=== PATIENT | male | born 1950 | race Caucasian/White ===

== ENCOUNTER 2022-12-26 05:46 | Inpatient (IN) | payer OTHER ==
[2022-12-26] VITALS (16 sets, daily range): BP systolic 110–172; BP diastolic 53–110
[~2022-12-26] VITALS: Ht 180.3 cm; Wt 106.6 kg
[~2022-12-26 05:46] MED LIST: Crestor20 MG PO; IBUP200 PO; IRON18 MG PO; VITAMIN D310 MC4 PO
--- NOTE | 2022-12-26 08:36 | NUR ---
12/26/22 0836 CURLY MOSQUERA PT RECEIVED NERVE BLOCK BY ANESTHESIA AT SURGERY SITE PRIOR TO PROCEDURE.
--- NOTE | 2022-12-26 18:22 | NUR ---
END OF SHIFT SUMMARY: PATIENT DENIED PAIN OR DISCOMFORT THROUGHOUT THE SHIFT. PATIENT UP TO THE CHAIR WITH PT. PATIENT FOLLOWING RECOMMENDATIONS. PATIENT IS RECEPTIVE TO RECOMMENDATIONS. PATIENT DROWSY UPON COMING TO THE FLOOR, BUT ABLE TO ANSWER QUESTIONS APPROPRIATELY. PATIENT BECAME INCREASING LES DROWSY. PATIENT DENIED DIZZINESS OR LIGHTHEADEDNESS WITH STANDING AND ACTIVITY. PATIENT REPORTED LETHARGY RELATED TO THE SURGERY. DRESSING REMAINED C/D/I THROUGHOUT THE SHIFT. NO SHADOWING OR DRAINAGE NOTED ON THE BANDAGE. PATIENT CONTINUED TO REPORT NUMBNESS OF HIS LEFT HAND AND ARM. PATIENT ABLE TO FEEL TOUCH ON THE FINGERS, FINGERS WERE WARM, AND PATIENT ABLE TO EASILY WIGGLE FINGERS AND MOBILIZE ARM WITH PHYSICAL THERAPY.
--- NOTE | 2022-12-27 03:14 | NUR ---
SHIFT SUMMARY: POD 1 LEFT TOTAL SHOULDER PATIENT IS A&OX4. VS ARE WNL AND IS ON RA. PATIENTS PAIN IS MANAGED WITH IV TORADOL AND TYLENOL AT THIS TIME. HE REPORTS NUMBNESS TO THE LEFT SHOULDER BUT IS ABLE TO MOVE ALL FINGERS AND TOES WHEN ASKED. PATIENT HAS AN AQUACEL ON THE LEFT SHOULDER THAT IS C/D/I. HIS SLING IS ON WITH THE POLAR PACK ON WELL. HE IS A SBA WITH INITIALLY GETTING UP OR LAYING DOWN FROM THE BED BUT OTHERWISE IS INDEP. IN THE ROOM. HE IS TOLERATING PO INTAKE AND IS VOIDING/HAD A BM THIS MORNING. PATIENT CALLS APPROPRIATELY. HE IS LAYING IN BED WITH CALL LIGHT IN REACH.
[2022-12-27 04:08] VITALS: BP 145/79
[2022-12-27 04:45] LABS: BASOPHILS ABSOLUTE AUTO 0.02 K/mm3 (0.00-0.23); BASOPHILS PERCENT AUTO 0 % (0-2); EOSINOPHILS ABSOLUTE AUTO 0.01 K/mm3 (0.00-0.68); EOSINOPHILS PERCENT AUTO 0 % (0-6); Hematocrit 41.7 % (37.0-53.0); Hemoglobin 13.7 g/dL (13.5-17.5); IMMATURE GRAN ABSOLUTE AUTO 0.07 K/mm3 (0.00-0.10); IMMATURE GRAN PERCENT AUTO 0 % (0-1); LYMPHOCYTES PERCENT AUTO 14 % (21-46); MONOCYTES ABSOLUTE AUTO 1.86 K/mm3 (0.16-1.47); MONOCYTES PERCENT AUTO 11 % (4-13); Mean Corpuscular HGB Conc 32.9 g/dL (31.5-36.5); Mean Corpuscular Volume 97 fL (80-100); NEUTROPHILS ABSOLUTE AUTO 12.14 K/mm3 (1.96-9.15); NEUTROPHILS PERCENT AUTO 75 % (41-73); Platelet Count 253 K/mm3 (150-400); RDW Standard Deviation 46.5 fL (35.1-46.3); Red Blood Cell Count 4.28 M/mm3 (4.30-5.90)
[2022-12-27 05:19] LABS: Bun/Creatinine Ratio 30.2 (12.0-20.0); Calcium, Blood 9.5 mg/dL (8.5-10.1); Creatinine, Blood 0.56 mg/dL (0.60-1.20); Magnesium, Blood 2.3 mg/dL (1.6-2.4); Potassium, Blood 4.5 mmol/L (3.5-5.5)
[2022-12-27] MEDS ORDERED: ACET500 PO (07:41)
[2022-12-27] MEDS ORDERED: OXYC5 PO (07:42)
[2022-12-27 07:53] VITALS: BP 170/83
[2022-12-27 07:54] VITALS: BP 158/86
--- NOTE | 2022-12-27 08:30 | NUR ---
MORNING NOTE: PT S/P L TSA, POD 1. PT REPORTS PAIN 4/10, MEDICATED PER EMAR. PT TOLERATING PO INTAKE & VOIDING W/ NO DIFFICULTY. PT IND IN RM, CALLS PRN FOR ASSIST. DRESSING IS C/D/I. BRUISING ASSESSED AROUND INCISION SITE & UNDER ARM. SLIGHT EDEMA ASSESSED L ARM. BILATERAL RADIAL PULSES PALPABLE, NO REPORTS OF NUMBNESS/TINGLING. SEE ASSESSMENT FOR MORE INFO. PT IS CORRECTLY WEARING SLING & COOLING DEVICE. @ BEDSIDE. PLAN IS TO DC THIS MORNING.
--- NOTE | 2022-12-27 10:17 | NUR ---
DISCHARGE NOTE: PT S/P L TSA, POD 1. PT CLEARED BY PT/OT FOR DISCHARGE. ABLE TO TOLERATE PO INTAKE & VOIDING W/ NO DIFFICULTY. PAIN DESCRIBED TOLERABLE W/ PRESCRIBED MEDICATION. DRESSING IS C/D/I. PT IS CORRECTLY WEARING SLING. PRESENT AT BEDSIDE DURING EDUCATION, BOTH PT & AGREE W/ DISCHARGE. IV RMVD PRIOR TO DISCHARGE. COOLING DEVICE & AQUACEL DRESSINGS PROVIDED FOR HOME USE. PT TRANSFERRED TO PERSONAL VEHICLE VIA WHEELCHAIR.
== END 2022-12-27 11:02 | disposition home or self-care (01) | DRG 483 ==
LOC: SURS 05:46 → PRE IP 07:30 → SURS 11:39
PROVIDERS: ADMIT Orthopaedic Surgery
PROC: 0RRK0JZ Replacement of Left Shoulder Joint with Synthetic Substitute, Open Approach (ICD-10-PCS; principal; 2022-12-26 07:30)
DX: M19.012 Primary osteoarthritis, left shoulder (principal); Z87.891 Personal history of nicotine dependence; Z98.890 Other specified postprocedural states; Z79.899 Other long term (current) drug therapy
CPT/HCPCS: 36415; 73030; 80048; 83735; 85025; 94760; 97110; 97162; 97166; 97530; 97535; A9270; C1776; J0171; J0690; J0735; J1100; J1885; J2250; J2405; J2704; J2795; J3010; J7120

== ENCOUNTER → 2023-10-11 | Outpatient (CLI) | payer MEDICARE ==
[~2023-10-11] MED LIST changes: +ACET500 PO; +OXYC5 PO
[2023-10-11 12:24] LABS: Stool Occult Bld Immuno 1 Negative (NEGATIVE)
== END | disposition home or self-care (01) ==
LOC: LAB SHORT 06:45 → LAB 06:45
PROVIDERS: Physician Assistant Medical
DX: Z12.11 Encounter for screening for malignant neoplasm of colon (principal)
CPT/HCPCS: 82274

== ENCOUNTER 2023-10-25 06:04 | Day surgery (SDC) | payer OTHER ==
[~2023-10-25] VITALS: Ht 180.3 cm; Wt 104.1 kg
[2023-10-25] MEDS ORDERED: CeFAZolin Sodium 2,000 MG VIAL ONE (06:20)
[2023-10-25] MEDS ORDERED: NS 50 ML IV ONE (06:20)
[2023-10-25] MEDS ORDERED: Clindamycin 900mg in D5W 50ML 0 ML IV ONE (06:20)
[2023-10-25] MEDS ORDERED: Lactated Ringer's 1,000 ML IV ONE ×3 (06:35→10:11)
[2023-10-25] MEDS ORDERED: Chlorhexidine Mouth Care 15 ML UDC MT SCH (06:45)
[2023-10-25] MEDS ORDERED: Ropivacaine 0.5% HCl/Pf 67.75 MG,EPINEPHrine HCL 0.25 MG,Ketorolac Tromethamine 15 MG,C... INFIL SCH (06:45)
[2023-10-25] MEDS ORDERED: NS IV SCH (06:45)
[2023-10-25] MEDS ORDERED: TRANEXAMIC ACID IV SCH (06:45)
[2023-10-25] MEDS ORDERED: Acetaminophen 500 MG Tab ONE (06:59)
[2023-10-25] MEDS ORDERED: OxyCODONE HCL 10 MG TABCR ONE (07:00)
[2023-10-25] MEDS ORDERED: Midazolam HCl 1MG / ML 2ML Vial ONE (07:10)
[2023-10-25] MEDS ORDERED: Ondansetron HCl 2 MG / ML 2ML Vial ONE ×2 (07:10→11:10)
[2023-10-25] MEDS ORDERED: FentaNYL Citrate 50 MCG/ML 2 ML Injection ONE (07:10)
[2023-10-25] MEDS ORDERED: Dexamethasone Sod Phos 10 MG/ML 1ML VIAL ONE (07:10)
[2023-10-25] MEDS ORDERED: propofoL 20 ML IV ONE (07:10)
[2023-10-25] MEDS ORDERED: EPINEPhrine HCl 1 MG/ML 1ML Amp ONE (07:10)
[2023-10-25] MEDS ORDERED: Bupivacaine HCl 0.25% 50 ML Vial ONE (07:11)
[2023-10-25] MEDS ORDERED: Tetracaine HCl 1% 10MG/ML 2ML Amp ONE (07:15)
--- NOTE | 2023-10-25 07:45 | NUR ---
10/25/23 0746 Aleena Calderon PERFORMED A RIGHT SHOUDLER BLOCK IN PREOP. TIME OUT STARTED 733.
--- NOTE | 2023-10-25 08:43 | NUR ---
10/25/23 0843 Malika Cooley PATIENT ON TMAX BED WITH WEDGE PILLOW UNDER KNEES, TWO SAFETY STRAPS OVER THEM, LEFT ARM SECURED WITH STRAP TO ARM BOARD, HEAD SECURED WITH FOAM HEADREST.
[2023-10-25 11:31] VITALS: BP 143/73
--- NOTE | 2023-10-25 11:31 | NUR ---
10/25/23 1131 STELLA VASQUEZ CALLED FOR SHOULDER XRAY PER DR KANG
[2023-10-25] MEDS ORDERED: Metoclopramide HCl 5MG / ML 2ML Vial ONE (11:56)
== END 2023-10-25 12:55 | disposition home or self-care (01) ==
LOC: ORSCSDS 06:04
PROVIDERS: Orthopaedic Surgery
PROC: 0RRJ0JZ Replacement of Right Shoulder Joint with Synthetic Substitute, Open Approach (ICD-10-PCS; principal; 2023-10-25 07:30)
DX: M19.011 Primary osteoarthritis, right shoulder (principal); Z87.891 Personal history of nicotine dependence
CPT/HCPCS: 73030; A9270; C1713; C1776; J0171; J0690; J0735; J1100; J1885; J2250; J2405; J2704; J2765; J2795; J3010; J7120